=== PATIENT | male | born 1975 | race Caucasian/White ===

== ENCOUNTER 2017-09-03 22:14 | Emergency (ER) | payer OTHER ==
[~2017-09-03] VITALS: Ht 182.9 cm; Wt 80.0 kg
[2017-09-03 22:29] VITALS: BP 139/94; PULSE 110; RESP 16; TEMP 97.8; O2SAT 98
[2017-09-04] MEDS ORDERED: SODIUM CHLOR 0.9% 1000 ML INJ 1,000 ML IV ONE (00:15)
[2017-09-04 00:41] LABS: ALBUMIN 4.3 GM/DL (3.4-5.0); ALT (GPT) 22 U/L (12-78); AST (GOT) 28 U/L (15-37); BICARBONATE 25.9 MEQ/L (21.0-32.0); BLOOD UREA NITROGEN 16 MG/DL (7-18); CALCIUM 8.7 MG/DL (8.5-10.1); CHLORIDE 103 MEQ/L (98-107); CREATININE 0.97 MG/DL (0.60-1.30); GLOMERULAR FILTRATION RATE 86 ML/MIN (>89); GLUCOSE,RANDOM 83 MG/DL (74-106); SODIUM (NA) 137 MEQ/L (136-145)
[2017-09-04 00:46] LABS: ALKALINE PHOSPHATASE 85 U/L (45-117); TOTAL BILIRUBIN ADULT 0.3 MG/DL (0.2-1.0); TOTAL PROTEIN 8.6 GM/DL (6.4-8.2)
--- NOTE | 2017-09-04 01:01 | PD ---
HPI Chief Complaint: Psychiatric Symptoms Time Seen by Provider: 23:57 Travel History International Travel<30 days: No Contact w/Intl Traveler<30days: No Traveled to known affect area: No History of Present Illness HPI Patient is a 41-year-old male presenting to the emergency department under a [place] act after being found publicly intoxicated. Patient admits to being alcoholic, he states he drinks a lot every day. He does not quantify how much he's had to drink today. He denies any physical complaints. Symptom onset is chronic, symptoms are exacerbated with alcohol ingestion. He denies any suicidal or homicidal ideations. He denies any pain at this time. Patient is not forthcoming with any other information. [facility] Past Medical History Cardiovascular Problems: Yes (HEART MURMUR) Social History Alcohol Use: Yes (2 bottles wine daily) Tobacco Use: Yes (1 PPD) Substance Use: No Allergies-Medications (Allergen,Severity, Reaction): Coded Allergies: No Known Allergies (Verified Adverse Reaction, Unknown, 09/03/17) Reported Meds & Prescriptions Reported Meds & Active Scripts Active No Active Prescriptions or Reported Medications Review of Systems ROS Limitations: Intoxication Except as stated in HPI: all other systems reviewed are Neg Physical Exam Narrative GENERAL: Well-developed, well-nourished, intoxicated-appearing male. Presenting in no acute distress. SKIN: Warm and dry. HEAD: Atraumatic. Normocephalic. EYES: Pupils equal and round. No scleral icterus. No injection or drainage. ENT: No nasal bleeding or discharge. Mucous membranes pink and moist. NECK: Trachea midline. No JVD. CARDIOVASCULAR: Regular rate and rhythm. RESPIRATORY: No accessory muscle use. Clear to auscultation. Breath sounds equal bilaterally. GASTROINTESTINAL: Abdomen soft, non-tender, nondistended. Hepatic and splenic margins not palpable. MUSCULOSKELETAL: Extremities without clubbing, cyanosis, or edema. No obvious deformities. NEUROLOGICAL: Awake and alert. No obvious cranial nerve deficits. Motor grossly within normal limits. Five out of 5 muscle strength in the arms and legs. Normal speech. PSYCHIATRIC: Appropriate mood and affect; insight and judgment normal. Data Data Last Documented VS Vital Signs Date Time Temp Pulse Resp B/P (MAP) Pulse Ox O2 Delivery O2 Flow Rate FiO2 09/03/17 22:29 97.8 110 16 139/94 (109) 98 Orders Orders Alcohol (Ethanol) (09/03/17 23:57) Comprehensive Metabolic Panel (09/03/17 23:57) Iv Access Insert/Monitor (09/04/17 00:02) Sodium Chlor 0.9% 1000 Ml Inj (Ns 1000 M (09/04/17 00:15) Labs Laboratory Tests Test 09/03/17 22:30 Blood Urea Nitrogen 16 MG/DL Creatinine 0.97 MG/DL Random Glucose 83 MG/DL Total Protein 8.6 GM/DL Albumin 4.3 GM/DL Calcium Level 8.7 MG/DL Alkaline Phosphatase 85 U/L Aspartate Amino Transf (AST/SGOT) 28 U/L Alanine Aminotransferase (ALT/SGPT) 22 U/L Total Bilirubin 0.3 MG/DL Sodium Level 137 MEQ/L Potassium Level 3.5 MEQ/L Chloride Level 103 MEQ/L Carbon Dioxide Level 25.9 MEQ/L Anion Gap 8 MEQ/L Estimat Glomerular Filtration Rate 86 ML/MIN Ethyl Alcohol Level 320 MG/DL MDM Medical Decision Making Medical Screen Exam Complete: Yes Emergency Medical Condition: Yes Medical Record Reviewed: Yes Interpretation(s) Vital Signs Date Time Temp Pulse Resp B/P (MAP) Pulse Ox O2 Delivery O2 Flow Rate FiO2 09/03/17 22:29 110 16 98 Differential Diagnosis Intoxication versus metabolic abnormality versus chronic alcoholism versus other Narrative Course Patient is a 41-year-old male brought into the emergency Department under Min' s act due to public intoxication. Patient's vital signs are stable. Blood alcohol level is 320. Patient will be allowed to sleep it off in the emergency department, when he is clinically sober and demonstrates safe ambulation he will be discharged. Diagnosis Primary Impression: Acute alcohol intoxication Qualified Codes: F10.929 - Alcohol use, unspecified with intoxication, unspecified Referrals: [facility] 1 day Patient Instructions: General Instructions Additional Instructions: Avoid excessive intake of alcohol Drink more water Follow-up at [facility] Return to emergency department for any new or worsening symptoms Med/Other Pt SpecificInfo: No Change to Meds Scripts No Active Prescriptions or Reported Meds Disposition: 01 DISCHARGE HOME Condition: Stable Itzel Méndez Sep 04, 2017 01:01
== END 2017-09-04 05:29 | disposition home or self-care (01) ==
LOC: NEDAMB 22:14 → NEPD 09-04 05:29
DX: F10.129 Alcohol abuse with intoxication, unspecified (principal); R01.1 Cardiac murmur, unspecified; F17.200 Nicotine dependence, unspecified, uncomplicated
CPT/HCPCS: 80053; 80307; 99283

== ENCOUNTER 2017-10-14 23:26 | Emergency (ER) | payer SELFPAY ==
[~2017-10-14] VITALS: Ht 182.9 cm; Wt 85.0 kg
[2017-10-14 23:35] VITALS: BP 156/103; PULSE 73; RESP 18; TEMP 98.6; O2SAT 98
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
[2017-10-15] MEDS ORDERED: diphenhydrAMINE HCL 50 MG/ML VIAL IM ONE (03:45)
[2017-10-15] MEDS ORDERED: LORazepam 2 MG/ML VIAL IM ONE (03:45)
[2017-10-15 04:00] VITALS: BP 134/89; PULSE 68; RESP 16; O2SAT 96
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
[2017-10-15 08:14] VITALS: BP 103/58; PULSE 99; RESP 18; TEMP 97; O2SAT 98
== END 2017-10-15 09:44 | disposition home or self-care (01) ==
LOC: NEDAMB 23:26 → NEPD 10-15 09:44
DX: F10.129 Alcohol abuse with intoxication, unspecified (principal); J32.0 Chronic maxillary sinusitis; R01.1 Cardiac murmur, unspecified; R45.1 Restlessness and agitation; F17.200 Nicotine dependence, unspecified, uncomplicated; Z78.1 Physical restraint status
CPT/HCPCS: 70450; 80307; 96372; 99284; J1200; J2060

== ENCOUNTER 2017-11-22 01:26 | Emergency (ER) | payer OTHER ==
[~2017-11-22] VITALS: Ht 182.9 cm; Wt 85.0 kg
[2017-11-22 01:31] VITALS: BP 154/97; PULSE 100; RESP 20; TEMP 98; O2SAT 98
[2017-11-22 01:35] VITALS: BP 146/90; PULSE 100; RESP 20; TEMP 98; O2SAT 97
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
[2017-11-22] MEDS ORDERED: TETANUS/DIPHTHERIA TOXOID ADULT 0.5 ML VIAL IM ONE (07:30)
== END 2017-11-22 13:31 | disposition home or self-care (01) ==
LOC: NEPC 01:26
DX: S09.90XA Unspecified injury of head, initial encounter (principal); H02.846 Edema of left eye, unspecified eyelid; S00.81XA Abrasion of other part of head, initial encounter; S80.212A Abrasion, left knee, initial encounter; S80.211A Abrasion, right knee, initial encounter; S50.312A Abrasion of left elbow, initial encounter; S50.311A Abrasion of right elbow, initial encounter; R01.1 Cardiac murmur, unspecified; Y33.XXXA Other specified events, undetermined intent, initial encounter; F10.129 Alcohol abuse with intoxication, unspecified; Z72.0 Tobacco use; Z23 Encounter for immunization
CPT/HCPCS: 70450; 70486; 71045; 72125; 73070; 90471; 90714; 96372